=== PATIENT | male | born 1990 | race Two or more races ===

== ENCOUNTER 2025-03-16 21:07 | Emergency (ER) | payer OTHER ==
[~2025-03-16] VITALS: Ht 172.7 cm; Wt 68.0 kg
[2025-03-17 01:56] VITALS: BP 121/82; TEMP 98.7; O2SAT 97
== END 2025-03-17 01:57 ==
LOC: ER 21:08
DX: Z02.89 Encounter for other administrative examinations (principal); M79.671 Pain in right foot; M79.672 Pain in left foot; Z65.3 Problems related to other legal circumstances
CPT/HCPCS: 73630-TC